=== PATIENT | female | born 1975 | race Caucasian/White ===

== ENCOUNTER 2023-10-05 18:44 | Inpatient (IN) | payer MEDICAID, SELFPAY ==
[~2023-10-05] VITALS: Ht 167.6 cm; Wt 101.7 kg
[2023-10-05 19:41] LABS: HEMATOCRIT 42.3 % (36.0-47.0); HEMOGLOBIN 13.7 g/dl (12.0-15.5); MEAN CORPUSCULAR HEMOGLOBIN 27.5 pg (27.0-33.0); MEAN CORPUSCULAR HGB CONC 32.4 g/dl (32.0-36.5); MEAN CORPUSCULAR VOLUME 84.8 fl (80.0-96.0); PLATELET COUNT, AUTOMATED 361 10^3/uL (150-450); RED BLOOD COUNT 4.99 10^6/uL (4.00-5.40); WHITE BLOOD COUNT 11.9 10^3/uL (4.0-10.0)
[2023-10-05 20:02] LABS: ETHYL ALCOHOL (ETHANOL) < 0.003 % (0.000-0.010)
[2023-10-05 20:04] LABS: ALBUMIN 3.6 G/DL (3.2-5.2); ALKALINE PHOSPHATASE 92 U/L (46-116); ALT/SGPT 38 U/L (7.0-40); AST/SGOT 23 U/L (<34); BILIRUBIN,DIRECT < 0.1 MG/DL (<0.4); BILIRUBIN,TOTAL 0.3 MG/DL (0.3-1.2); BLOOD UREA NITROGEN 10 MG/DL (9-23); CALCIUM LEVEL 9.6 MG/DL (8.5-10.1); CARBON DIOXIDE LEVEL 23 MMOL/L (20-31); CHLORIDE LEVEL 104 MMOL/L (98-107); CREATININE FOR GFR 0.59 MG/DL (0.55-1.30); GLOMERULAR FILTRATION RATE > 60.0 (>58); GLUCOSE, FASTING 116 MG/DL (60-100); SALICYLATE LEVEL < 3.0 MG/DL (<30); SODIUM LEVEL 138 MMOL/L (136-145); TOTAL PROTEIN 7.6 G/DL (5.7-8.2)
[2023-10-05 20:06] LABS: THYROID STIMULATING HORMONE 4.424 uIU/ML (0.55-4.78)
[2023-10-05 20:13] LABS: AMPHETAMINES LEVEL URINE NEGATIVE (NEGATIVE); BARBITURATES URINE NEGATIVE (NEGATIVE); BENZODIAZEPINES URINE NEGATIVE (NEGATIVE); CANNABINOIDS URINE NEGATIVE (NEGATIVE); COCAINE METABOLITE URINE NEGATIVE (NEGATIVE); METHADONE URINE NEGATIVE (NEGATIVE); OPIATES URINE NEGATIVE (NEGATIVE); PHENCYCLIDINE URINE NEGATIVE (NEGATIVE)
[2023-10-05] MEDS ORDERED: diphenhydrAMINE 25MG CAP PO PRN (23:05)
[2023-10-05] MEDS ORDERED: MOM 30ML SUSPENSION UDC PO PRN (23:05)
[2023-10-05] MEDS ORDERED: IBUPROFEN 400MG TAB PO PRN (23:05)
[2023-10-05] MEDS ORDERED: ACETAMINOPHEN TAB 650MG DOSE (2X325MG) PO PRN (23:05)
[2023-10-05] MEDS ORDERED: MAALOX 30 ML SUSP *UDC PO PRN (23:05)
[2023-10-06] MEDS ORDERED: OLANZapine ORAL DISINTEGRATING TAB 5MG PO PRN (00:10)
[2023-10-06] MEDS ORDERED: OLAN1TAB20 PO (07:44)
[2023-10-06] MEDS ORDERED: PERP4TAB30 PO (07:44)
[2023-10-06] MEDS ORDERED: PERP2TAB20 PO (07:44)
[2023-10-06] MEDS ORDERED: ZOLO100T PO (07:44)
[2023-10-06] MEDS ORDERED: HOME MED LIST COMPLETE! XX SCH (07:45)
[2023-10-06] MEDS: DIVALPROEX 250MG *ER* TAB PO SCH (09:38)
[2023-10-06] MEDS: metFORMIN (GLUCOPHAGE) 500MG TAB PO SCH (09:38)
[2023-10-06] MEDS: LURASIDONE HCL 40MG TAB (LATUDA) PO SCH (09:38)
[2023-10-06] MEDS: PERPHENAZINE 2 MG TAB PO SCH (09:39)
[2023-10-06 18:18] VITALS: BP 142/76; TEMP 98.7; O2SAT 96
[2023-10-07 10:21] LABS: HEMOGLOBIN A1c 6.1 % (4.0-6.0)
[2023-10-07 10:30] LABS: CHOLESTEROL RISK RATIO 4.03 (<5); HDL CHOLESTEROL 44.4 MG/DL (>40); LDL CHOLESTEROL 91.2 MG/DL (<100); NON-HDL-C 134.6 MG/DL
[2023-10-07 16:56] VITALS: BP 120/83; TEMP 98.3; O2SAT 98
[2023-10-07] MEDS: PERPHENAZINE 2 MG TAB PO SCH (20:58)
[2023-10-08] MEDS: LURASIDONE HCL 40MG TAB (LATUDA) PO SCH (08:48)
[2023-10-08] MEDS: PERPHENAZINE 2 MG TAB PO SCH (08:49)
[2023-10-08 16:37] VITALS: BP 140/82; TEMP 98; O2SAT 98
[2023-10-08] MEDS: LORazepam 1 MG TAB PO STA (21:35)
[2023-10-09] MEDS: LURASIDONE 20 MG TAB (LATUDA) PO SCH (09:02)
[2023-10-10 06:35] VITALS: BP 133/80; TEMP 96.6; O2SAT 98
[2023-10-11 06:20] VITALS: BP 139/67; TEMP 98.1; O2SAT 97
[2023-10-11 17:30] VITALS: BP 138/64; TEMP 98.2; O2SAT 98
[2023-10-11] MEDS: traZODone 50 MG TAB PO PRN (21:41)
[2023-10-12 17:14] VITALS: BP 142/90; TEMP 98.6; O2SAT 97
[2023-10-13 06:58] VITALS: BP 129/80; TEMP 98.5; O2SAT 96
[2023-10-13 16:14] VITALS: BP 138/65; TEMP 97.8; O2SAT 95
[2023-10-14 15:28] VITALS: BP 126/79; TEMP 97.4; O2SAT 97
[2023-10-14] MEDS: metFORMIN (GLUCOPHAGE) 500MG TAB PO ONE (20:21)
[2023-10-14] MEDS: LITHIUM CARBONATE 150 MG CAP PO SCH (20:23)
[2023-10-15 06:11] VITALS: BP 155/98; TEMP 96.6; O2SAT 99
[2023-10-15] MEDS ORDERED: METF500T13 PO (12:36)
[2023-10-15] MEDS ORDERED: HYDR-3363 PO (12:36)
[2023-10-15] MEDS ORDERED: PERP4TAB30 PO (12:36)
[2023-10-15] MEDS ORDERED: PERP2TAB20 PO (12:36)
[2023-10-15] MEDS ORDERED: OLAN5ZYD PO (12:36)
[2023-10-15] MEDS ORDERED: LATU20TA PO (12:36)
== END 2023-10-15 13:10 | disposition home or self-care (01) | DRG 750 ==
LOC: M ED 18:44 → M ED INP 23:04 → M PSY 23:52
PROVIDERS: ADMIT Student in an Organized Health Care Education/Training Program; ATTEND Student in an Organized Health Care Education/Training Program
DX: F25.0 Schizoaffective disorder, bipolar type (principal); F30.9 Manic episode, unspecified; F43.10 Post-traumatic stress disorder, unspecified; R73.03 Prediabetes; Z79.899 Other long term (current) drug therapy